=== PATIENT | female | born 2000 | race Caucasian/White ===

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

== ENCOUNTER 2019-01-03 17:39 | Emergency (ER) | payer MEDICAID ==
--- NOTE | 2019-01-03 18:11 | ED Physician Documentation ---
PD HPI HEAD INJURY - Stated complaint Stated Complaint: DE [place] ROSA/GLF - Chief complaint Chief Complaint: Neuro - History obtained from History obtained from: Patient - History of Present Illness Mechanism of head injury: Fell Where head injury occurred: Home Timing - onset: How many days ago (3) Pain level max: 10 Pain level now: 8 Location of injury: Other (global) Quality of pain: Pain, Aching, Dull Associated symptoms: LOC, AMS, Amnesia. No: Nausea / vomiting, Neck pain, Paresthesias, Seizures, Ear drainage Symptoms improve with: Rest Symptoms worsen with: Movement Contributing factors: No: Anticoagulated, Intoxicated Similar symptoms before: Has not had sx before Recently seen: Not recently seen - Additional information Additional information: states fell doing laundry on tuesday night and "hasn't felt right since" Review of Systems Unable to obtain: AMS, Confused Ten Systems: 10 systems reviewed and negative Constitutional: denies: Fever Nose: denies: Rhinorrhea / runny nose, Congestion Throat: denies: Sore throat Cardiac: denies: Chest pain / pressure Respiratory: denies: Cough GI: denies: Nausea, Vomiting, Diarrhea : denies: Now EGA Skin: denies: Rash Musculoskeletal: denies: Neck pain, Back pain Neurologic: reports: Confused. denies: Focal weakness, Numbness PD PAST MEDICAL HISTORY - Past Medical History Past Medical History: Yes Psych: Depression - Past Surgical History Past Surgical History: No - Present Medications Home Medications: Ambulatory Orders Medication Instructions Recorded Confirmed Albuterol Sulf [Ventolin Hfa 1 - 2 puffs INH Q4HR PRN 01/03/19 01/03/19 Inhaler] Beclomethasone 40 Mcg [Qvar 40] 0 puffs INH BID 01/03/19 01/03/19 Omeprazole 10 mg PO 01/03/19 01/03/19 Prazosin [Minipress] 1 mg PO 01/03/19 Sertraline [Zoloft] 100 mg PO 01/03/19 traZODone [Desyrel] 50 mg PO ONCE 01/03/19 01/03/19 - Allergies Allergies/Adverse Reactions: Allergies Allergy/AdvReac Type Severity Reaction Status Date / Time No Known Drug Allergies Allergy Verified 01/03/19 18:05 - Living Situation Living Situation: reports: With family Living Arrangement: reports: At home - Social History Does the pt smoke?: No Smoking Status: Never smoker Does the pt drink ETOH?: No Does the pt have substance abuse?: No - Family History Family history: reports: Non contributory - Immunizations Immunizations are current?: Yes - POLST Patient has POLST: No PD ED PE NORMAL - Vitals Vital signs reviewed: Yes - General General: Alert and oriented X 3, No acute distress - HEENT HEENT: Moist mucous membranes - Neck Neck: Supple, no meningeal sign - Cardiac Cardiac: RRR - Respiratory Respiratory: No respiratory distress, Clear bilaterally - Abdomen Abdomen: Soft, Non tender, Non distended - Back Back: No spinal TTP - Derm Derm: Warm and dry - Extremities Extremities: No edema - Neuro Neuro: Alert and oriented X 3 - Free text exam Free text exam: Patient is alert and oriented x3, however she often replies "I do not know" to questions that she should know the answer to such as do you smoke, she responds "I do not know". When pressed further she states not since she hit her head. When asked if she smoked before she hit her head, she states I do not know". Results - Vitals Vitals: Vital Signs - 24 hr 01/03/19 01/03/19 17:43 19:53 Temperature 36.3 C L Heart Rate 73 72 Respiratory 18 16 Rate Blood Pressure 143/82 H 118/71 O2 Saturation 100 100 Oxygen O2 Source Room air - Labs Labs: Laboratory Tests 01/03/19 01/03/19 01/03/19 18:12 18:12 18:12 WBC 7.6 RBC 4.65 Hgb 12.9 Hct 39.8 MCV 85.7 MCH 27.8 MCHC 32.4 RDW 13.9 Plt Count 340 MPV 6.8 L Neut # (Auto) 5.0 Lymph # (Auto) 1.7 [place] # (Auto) 0.7 Eos # (Auto) 0.1 Baso # (Auto) 0.0 Absolute Nucleated RBC 0.00 Nucleated RBC % 0.0 Sodium 138 Potassium 3.7 Chloride 102 Carbon Dioxide 24 Anion Gap 12.0 BUN 12 Creatinine 0.6 Estimated GFR (MDRD) 129 Glucose 92 Calcium 9.0 Total Bilirubin 0.3 AST 21 ALT 19 Alkaline Phosphatase 59 Total Protein 7.1 Albumin 4.1 Globulin 3.0 Albumin/Globulin Ratio 1.4 Lipase 37 TSH 2.42 Urine Color Urine Clarity Urine pH Ur Specific [place] Urine Protein Urine Glucose (UA) Urine Ketones Urine Occult Blood Urine Nitrite Urine Bilirubin Urine Urobilinogen Ur Leukocyte Esterase Ur Microscopic Review Urine Culture Comments Urine HCG, Qual Salicylates < 6.0 Urine Opiates Screen Ur Oxycodone Screen Urine Methadone Screen Ur Propoxyphene Screen Acetaminophen < 10 L Ur Barbiturates Screen Ur Tricyclics Screen Ur Phencyclidine Scrn Ur Amphetamine Screen U Methamphetamines Scrn U Benzodiazepines Scrn Urine Cocaine Screen U Cannabinoids Screen Ethyl Alcohol < 5.0 01/03/19 01/03/19 18:15 18:15 WBC RBC Hgb Hct MCV MCH MCHC RDW Plt Count MPV Neut # (Auto) Lymph # (Auto) [place] # (Auto) Eos # (Auto) Baso # (Auto) Absolute Nucleated RBC Nucleated RBC % Sodium Potassium Chloride Carbon Dioxide Anion Gap BUN Creatinine Estimated GFR (MDRD) Glucose Calcium Total Bilirubin AST ALT Alkaline Phosphatase Total Protein Albumin Globulin Albumin/Globulin Ratio Lipase TSH Urine Color YELLOW Urine Clarity CLEAR Urine pH 6.0 Ur Specific [place] 1.015 Urine Protein NEGATIVE Urine Glucose (UA) NEGATIVE Urine Ketones NEGATIVE Urine Occult Blood TRACE-INTA Urine Nitrite NEGATIVE Urine Bilirubin NEGATIVE Urine Urobilinogen 0.2 (NORMAL) Ur Leukocyte Esterase NEGATIVE Ur Microscopic Review NOT INDICATED Urine Culture Comments NOT INDICATED Urine HCG, Qual NEGATIVE Salicylates Urine Opiates Screen NEGATIVE Ur Oxycodone Screen NEGATIVE Urine Methadone Screen NEGATIVE Ur Propoxyphene Screen NEGATIVE Acetaminophen Ur Barbiturates Screen NEGATIVE Ur Tricyclics Screen NEGATIVE Ur Phencyclidine Scrn NEGATIVE Ur Amphetamine Screen NEGATIVE U Methamphetamines Scrn NEGATIVE U Benzodiazepines Scrn NEGATIVE Urine Cocaine Screen NEGATIVE U Cannabinoids Screen NEGATIVE Ethyl Alcohol - Rads (name of study) Head CT Radiology: Prelim report reviewed, EMP read contemporaneously, See rad report (no acute abnormality.) PD MEDICAL DECISION MAKING - ED course Complexity details: reviewed results, re-evaluated patient, considered differential, d/w patient ED course: 18-year-old female presents to the emergency department after closed head injury a few days ago. Negative head CT. Appears to be having postconcussive symptoms. No acute laboratory findings. Her headache improved with Motrin. We will follow-up with her doctor for further care. Patient counseled regarding signs and symptoms for which I believe and urgent re-evaluation would be necessary. Patient with good understanding of and agreement to plan and is comfortable going home at this time This document was made in part using voice recognition software. While efforts are made to proofread this document, sound alike and grammatical errors may occur. Departure - Departure Disposition: 01 Home, Self Care Clinical Impression: Concussion Qualifiers: Encounter type: initial encounter Loss of consciousness presence/duration: with LOC of unspecified duration Qualified Code(s): S06.0X9A - Concussion with loss of consciousness of unspecified duration, initial encounter Condition: Good Instructions: ED Concussion Follow-Up: Rosita Leavitt PA-C [Provider Admit Priv/Credential] - Within 1 week Comments: You can continue Motrin and Tylenol as needed for pain. Return if you worsen. Do not drive until you are released by your doctor. Discharge Date/Time: 01/03/19 20:00
[2019-01-03 18:17] LABS: BASOPHILS % (AUTO) 0.3 %; EOSINOPHILS # (AUTO) 0.1 10^3/uL (0.0-0.7); EOSINOPHILS % (AUTO) 1.4 %; HGB - HEMOGLOBIN 12.9 g/dL (12.0-16.0); LYMPHOCYTES # (AUTO) 1.7 10^3/uL (1.5-3.5); LYMPHOCYTES % (AUTO) 22.3 %; MEAN CORPUSCULAR HEMOGLOBIN 27.8 pg (27.0-31.0); MEAN CORPUSCULAR HGB CONC 32.4 g/dL (32.0-36.0); MEAN CORPUSCULAR VOLUME 85.7 fL (81.0-99.0); MEAN PLATELET VOLUME 6.8 fL (7.9-10.8); MONOCYTES # (AUTO) 0.7 10^3/uL (0.0-1.0); MONOCYTES % (AUTO) 9.6 %; NEUTROPHILS % (AUTO) 66.4 %; PLT - PLATELET COUNT 340 10^3/uL (130-450); RED BLOOD COUNT 4.65 10^6/uL (4.20-5.40); RED CELL DISTRIBUTION WIDTH 13.9 % (12.0-15.0); WHITE BLOOD COUNT 7.6 x10^3/uL (4.8-10.8)
[2019-01-03 18:23] LABS: MUDS CUTOFF CONCENTRATIONS CUTOFF CONC BELOW:
[2019-01-03 18:24] LABS: BILIRUBIN,URINE NEGATIVE (NEGATIVE); GLUCOSE, URINE (UA) NEGATIVE (NEGATIVE); KETONES,URINE (UA) NEGATIVE (NEGATIVE); LEUKOCYTE ESTERASE, URINE NEGATIVE (NEGATIVE); NITRITE,URINE NEGATIVE (NEGATIVE); OCCULT BLOOD,URINE TRACE-INTA (NEGATIVE); PROTEIN,URINE NEGATIVE (NEGATIVE); UROBILINOGEN,URINE 0.2 (NORMAL) E.U./dL (NORMAL)
[2019-01-03 18:28] LABS: CLARITY,URINE CLEAR (CLEAR)
[2019-01-03 18:29] LABS: HCG UR QUAL NEGATIVE
[2019-01-03 18:36] LABS: AMPHETAMINE SCREEN,URINE NEGATIVE (NEGATIVE); BENZODIAZEPINES SCREEN, URINE NEGATIVE (NEGATIVE); COCAINE SCREEN URINE NEGATIVE (NEGATIVE); METHADONE SCREEN, URINE NEGATIVE (NEGATIVE); METHAMPHETAMINES SCREEN, URINE NEGATIVE (NEGATIVE); OPIATE SCREEN, URINE NEGATIVE (NEGATIVE); OXYCODONE SCREEN, URINE NEGATIVE (NEGATIVE); PROPOXYPHENE SCREEN, URINE NEGATIVE (NEGATIVE); TRICYCLIC ANTIDEPRESSANT,URINE NEGATIVE (NEGATIVE)
[2019-01-03 18:55] LABS: ACETAMINOPHEN < 10 ug/mL (10-30); ALBUMIN 4.1 g/dL (3.2-5.5); ALBUMIN/GLOBULIN RATIO 1.4 (1.0-2.2); ALKALINE PHOSPHATASE 59 IU/L (42-121); ALT ALANINE AMINOTRANSFERASE 19 IU/L (10-60); AST ASPARTATE AMINOTRANSFERASE 21 IU/L (10-42); BILIRUBIN,TOTAL 0.3 mg/dL (0.2-1.0); BUN - BLOOD UREA NITROGEN 12 mg/dL (6-20); CARBON DIOXIDE - CO2 24 mmol/L (21-32); CHLORIDE 102 mmol/L (101-111); CREATININE 0.6 mg/dL (0.4-1.0); GFR - MDRD 129 (>89); GLUCOSE 92 mg/dL (70-100); LIPASE 37 U/L (22-51); SALICYLATE < 6.0 mg/dL; SODIUM 138 mmol/L (135-145); TOTAL PROTEIN 7.1 g/dL (6.7-8.2)
--- NOTE | 2019-01-03 19:37 | CT Report ---
Reason: head injury, ALOC Procedure Date: 01/03/2019 Accession Number: [id number] / [id number] Procedure: CT - HEAD WO CPT Code: FULL RESULT: EXAM: CT HEAD EXAM DATE: 01/03/2019 06:25 PM. CLINICAL HISTORY: Confusion COMPARISON: HEAD W/O 06/28/2014 3:06 PM. TECHNIQUE: Multiaxial CT images were obtained from the foramen magnum to the vertex. Reformats: Sagittal and coronal. IV contrast: None. In accordance with CT protocol optimization, one or more of the following dose reduction techniques were utilized for this exam: automated exposure control, adjustment of mA and/or KV based on patient size, or use of iterative reconstructive technique. FINDINGS: Parenchyma: No intraparenchymal hemorrhage. No evidence of mass, midline shift, or CT findings of infarction. Haro-white differentiation is distinct. Extraaxial Spaces: Normal for age. No subdural or epidural collections identified. Ventricles: Normal in size and position. Sinuses and Orbits: Imaged paranasal sinuses, orbits, and mastoids show no significant abnormality. Bones: No evidence of fracture or calvarial defect. Other: None. IMPRESSION: No acute intracranial CT abnormality. RADIA
[2019-01-03] MEDS ORDERED: IBUPROFEN 800 MG TABLET PO STA (19:51)
[2019-01-03 19:54] VITALS: BP 118/71
== END 2019-01-03 20:00 | disposition home or self-care (01) ==
LOC: ED 17:39
DX: S06.0X9A Concussion with loss of consciousness of unspecified duration, initial encounter (principal); W19.XXXA Unspecified fall, initial encounter; Y93.E2 Activity, laundry; Y92.008 Other place in unspecified non-institutional (private) residence as the place of occurrence of the external cause
CPT/HCPCS: 36415; 70450; 80053; 80306; 80307; 80320; 80329; 81003; 81025; 83690; 84443; 85025; 99283; A9270; 81001; 87086

== ENCOUNTER 2019-02-11 19:00 | Emergency (ER) | payer MEDICAID ==
[2019-02-11 19:09] VITALS: BP 130/76
[2019-02-11] MEDS ORDERED: IBUPROFEN 800 MG TABLET PO STA (19:30)
--- NOTE | 2019-02-11 19:33 | ED Physician Documentation ---
PD HPI UPPER EXT INJURY - Stated complaint Stated Complaint: RT WRIST INJ - Chief complaint Chief Complaint: Trauma Ext - History obtained from History obtained from: Patient - History of Present Illness Location: Right (Her right wrist was caught between a box in her car when she was lifting it at home just prior to arrival.) Review of Systems Constitutional: reports: Reviewed and negative Throat: reports: Reviewed and negative Cardiac: reports: Reviewed and negative Respiratory: reports: Reviewed and negative PD PAST MEDICAL HISTORY - Past Medical History Psych: Depression - Past Surgical History Past Surgical History: No - Present Medications Home Medications: Ambulatory Orders Medication Instructions Recorded Confirmed Albuterol Sulf [Ventolin Hfa 1 - 2 puffs INH Q4HR PRN 01/03/19 01/03/19 Inhaler] Beclomethasone 40 Mcg [Qvar 40] 0 puffs INH BID 01/03/19 01/03/19 Omeprazole 10 mg PO 01/03/19 01/03/19 Prazosin [Minipress] 1 mg PO 01/03/19 Sertraline [Zoloft] 100 mg PO 01/03/19 traZODone [Desyrel] 50 mg PO ONCE 01/03/19 01/03/19 Ibuprofen [Motrin] 800 mg PO Q8H PRN #30 tablet 02/11/19 - Allergies Allergies/Adverse Reactions: Allergies Allergy/AdvReac Type Severity Reaction Status Date / Time No Known Drug Allergies Allergy Verified 02/11/19 19:08 - Social History Does the pt smoke?: No Smoking Status: Never smoker Does the pt drink ETOH?: No Does the pt have substance abuse?: No - Immunizations Immunizations are current?: Yes - POLST Patient has POLST: No PD ED PE NORMAL - Vitals Vital signs reviewed: Yes - General General: Alert and oriented X 3, No acute distress - Extremities Extremities: Other (Mild tenderness over the distal dorsal wrist. She refuses to range it. No focal snuffbox tenderness. Normal neurovascular function in the hand.) - Neuro Neuro: Alert and oriented X 3, Normal speech Results - Vitals Vitals: Vital Signs - 24 hr 02/11/19 19:06 Temperature 36.2 C L Heart Rate 104 H Respiratory 16 Rate Blood Pressure 130/76 O2 Saturation 99 Oxygen O2 Source Room air Departure - Departure Disposition: 01 Home, Self Care Clinical Impression: Crush injury, wrist Qualifiers: Encounter type: initial encounter Laterality: right Qualified Code(s): S67.31XA - Crushing injury of right wrist, initial encounter Condition: Good Record reviewed to determine appropriate education?: Yes Instructions: ED Sprain Wrist Prescriptions: Ibuprofen [Motrin] 800 mg PO Q8H PRN #30 tablet PRN Reason: PAIN &/OR FEVER Comments: Recheck with your physician in a week if not better, return for new or worsening symptoms. You can wear the splint as needed for comfort.
--- NOTE | 2019-02-11 19:38 | XRAY Report ---
Reason: injury to R wrist, dropped a heavy box Procedure Date: 02/11/2019 Accession Number: [id number] / [id number] Procedure: XR - Wrist 4 View RT CPT Code: FULL RESULT: EXAM: RIGHT WRIST RADIOGRAPHY EXAM DATE: 02/11/2019 07:24 PM. CLINICAL HISTORY: Wrist pain post injury. COMPARISON: None. TECHNIQUE: 4 views. FINDINGS: Bones: Normal. No fractures or bone lesions. Joints: Normal. No subluxations. Soft Tissues: Normal. No soft tissue swelling. IMPRESSION: Normal wrist radiography. RADIA
== END 2019-02-11 19:51 | disposition home or self-care (01) ==
LOC: ED 19:00
DX: S67.31XA Crushing injury of right wrist, initial encounter (principal); W20.8XXA Other cause of strike by thrown, projected or falling object, initial encounter; Y93.89 Activity, other specified; Y92.009 Unspecified place in unspecified non-institutional (private) residence as the place of occurrence of the external cause
CPT/HCPCS: 73110; 99283; A9270

== ENCOUNTER 2019-05-19 07:22 | Outpatient (CLI) | payer OTHER, BC, MEDICAID | END 2019-05-19 07:23 | disposition critical access hospital (66) | LOC: EMS 07:22 | PROVIDERS: ATTEND Surgery | DX: R10.32 Left lower quadrant pain (principal); M25.512 Pain in left shoulder; S01.21XA Laceration without foreign body of nose, initial encounter; V48.5XXA Car driver injured in noncollision transport accident in traffic accident, initial encounter; Y92.413 State road as the place of occurrence of the external cause | CPT/HCPCS: A0425; A0427 ==

== ENCOUNTER → 2019-05-23 | Outpatient (CLI) | payer BC, MEDICAID ==
--- NOTE | 2019-05-23 16:19 | XRAY Report ---
Reason: LOW BACK PAIN Procedure Date: 05/23/2019 Accession Number: [id number] / [id number] Procedure: WCP - Lumbar Spine 2 View CPT Code: FULL RESULT: EXAM: LUMBOSACRAL SPINE RADIOGRAPHY EXAM DATE: 05/23/2019 03:38 PM. CLINICAL HISTORY: LOW BACK PAIN. COMPARISONS: None. TECHNIQUE: 3 views. FINDINGS: Alignment: Normal. No spondylolisthesis or scoliosis. Bones: Five [id number]-[id number] lumbar vertebral bodies are present. No fractures or bone lesions. Disks: Normal. Disk heights are maintained. Facets: No degenerative changes. Sacroiliac Joints: Unremarkable. Soft Tissues: Large amount of generalized retained stool. Intrauterine device noted in right pelvis. IMPRESSION: 1. Large amount of generalized retained stool. 2. Otherwise negative examination. Normal lumbar spine and pelvis. RADIA
== END ==
LOC: DI.WCP 08:00 → EDSTATUS 10:24
PROVIDERS: ATTEND Physician Assistant Medical
DX: M54.5 Low back pain (principal)
CPT/HCPCS: 72100

== ENCOUNTER 2019-11-01 17:23 | Emergency (ER) | payer OTHER, MEDICAID ==
[2019-11-01 18:35] LABS: BASOPHILS % (AUTO) 0.4 %; EOSINOPHILS # (AUTO) 0.1 10^3/uL (0.0-0.7); EOSINOPHILS % (AUTO) 1.7 %; HGB - HEMOGLOBIN 13.7 g/dL (12.0-16.0); LYMPHOCYTES # (AUTO) 1.5 10^3/uL (1.5-3.5); LYMPHOCYTES % (AUTO) 28.8 %; MEAN CORPUSCULAR HGB CONC 33.4 g/dL (32.0-36.0); MEAN CORPUSCULAR VOLUME 89.7 fL (81.0-99.0); MEAN PLATELET VOLUME 9.1 fL (7.9-10.8); MONOCYTES # (AUTO) 0.5 10^3/uL (0.0-1.0); MONOCYTES % (AUTO) 9.2 %; NEUTROPHILS # (AUTO) 3.1 10^3/uL (1.5-6.6); NEUTROPHILS % (AUTO) 59.5 %; PLT - PLATELET COUNT 290 10^3/uL (130-450); RED BLOOD COUNT 4.57 10^6/uL (4.20-5.40); RED CELL DISTRIBUTION WIDTH 12.1 % (12.0-15.0); WHITE BLOOD COUNT 5.2 x10^3/uL (4.8-10.8)
[2019-11-01 18:56] LABS: ALBUMIN 4.5 g/dL (3.2-5.5); ALBUMIN/GLOBULIN RATIO 1.6 (1.0-2.2); BILIRUBIN,TOTAL 0.4 mg/dL (0.2-1.0); CALCIUM 9.1 mg/dL (8.5-10.3); CREATININE 0.7 mg/dL (0.4-1.0); TOTAL PROTEIN 7.3 g/dL (6.7-8.2)
[2019-11-01 18:59] LABS: BILIRUBIN,URINE NEGATIVE (NEGATIVE); GLUCOSE, URINE (UA) NEGATIVE (NEGATIVE); KETONES,URINE (UA) NEGATIVE (NEGATIVE); LEUKOCYTE ESTERASE, URINE NEGATIVE (NEGATIVE); NITRITE,URINE POSITIVE (NEGATIVE); OCCULT BLOOD,URINE NEGATIVE (NEGATIVE); PH,URINE 7.5 PH (5.0-7.5); PROTEIN,URINE NEGATIVE (NEGATIVE); UROBILINOGEN,URINE 0.2 (NORMAL) E.U./dL (NORMAL)
[2019-11-01 19:02] LABS: CLARITY,URINE SL. CLOUDY (CLEAR); HCG UR QUAL NEGATIVE
--- NOTE | 2019-11-01 19:02 | ED Physician Documentation ---
History of Present Illness - Stated complaint Stated Complaint: GLF AT WORK - Chief complaint Chief Complaint: General - History obtained from History obtained from: Patient (16-year-old patient arrives today she is a employee of [employer] in [place]. She was at work last night staring at the conveyor belt she says when she felt slightly dizzy then the next thing she remembers was being walked outside by an employee to get some fresh air. Since then she has had nausea. She was advised that if she awoke today with a headache to be seen in the emergency room, she woke up this morning she has had a headache all day, with some nausea without vomiting. She has no change in vision. 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, vascular ring, "fetus heart".) Review of Systems Constitutional: reports: Reviewed and negative Eyes: reports: Reviewed and negative Ears: reports: Reviewed and negative Nose: reports: Reviewed and negative Cardiac: reports: Reviewed and negative Respiratory: reports: Reviewed and negative GI: reports: Nausea, Vomiting Skin: reports: Reviewed and negative Neurologic: reports: Syncope, Headache, LOC PD PAST MEDICAL HISTORY - Past Medical History Past Medical History: Yes Cardiovascular: Other (Double aortic arch, vascular ring.) Psych: Depression - Past Surgical History Past Surgical History: No - Present Medications Home Medications: Ambulatory Orders Medication Instructions Recorded Confirmed Albuterol Sulf [Ventolin Hfa 1 - 2 puffs INH Q4HR PRN 01/03/19 01/03/19 Inhaler] Beclomethasone 40 Mcg [Qvar 40] 0 puffs INH BID 01/03/19 01/03/19 Omeprazole 10 mg PO 01/03/19 01/03/19 Prazosin [Minipress] 1 mg PO 01/03/19 Sertraline [Zoloft] 100 mg PO 01/03/19 traZODone [Desyrel] 50 mg PO ONCE 01/03/19 01/03/19 Ibuprofen [Motrin] 800 mg PO Q8H PRN #30 tablet 02/11/19 Cyclobenzaprine [Flexeril] 10 mg PO TID PRN #20 tablet 05/19/19 Hydrocodone/Acetaminophen 1 - 2 each PO Q6H PRN #14 tablet 05/19/19 [Hydrocodon-Acetaminophen 5-325] Nitrofurantoin [Macrobid] 100 mg PO DAILY #10 capsule 11/01/19 - Allergies Allergies/Adverse Reactions: Allergies Allergy/AdvReac Type Severity Reaction Status Date / Time No Known Drug Allergies Allergy Verified 05/19/19 07:38 - Social History Does the pt smoke?: No Smoking Status: Never smoker Does the pt drink ETOH?: No Does the pt have substance abuse?: No - Immunizations Immunizations are current?: Yes - POLST Patient has POLST: No PD ED PE NORMAL - General General: Alert and oriented X 3, No acute distress, Well developed/nourished - HEENT HEENT: Atraumatic, PERRL, EOMI, Ears normal, Moist mucous membranes, Pharynx benign - Neck Neck: No adenopathy - Cardiac Cardiac: RRR, No murmur - Respiratory Respiratory: No respiratory distress, Clear bilaterally - Abdomen Abdomen: Normal bowel sounds, Soft, Non tender - Neuro Neuro: Alert and oriented X 3, can capper 2-12 intact, No motor deficit, No sensory deficit, Normal speech Eye Opening: Spontaneous Motor: Obeys Commands Verbal: Oriented GCS Score: 15 PD ED PE EXPANDED - HEENT HEENT: Head injury (Slight tenderness to the posterior skull. Without ecchymosis or hematoma noted) Results - Vitals Vitals: Vital Signs - 24 hr 11/01/19 11/01/19 17:30 20:41 Temperature 36.6 C Heart Rate 82 80 Respiratory 16 16 Rate Blood Pressure 106/65 110/70 O2 Saturation 97 99 Oxygen O2 Source Room air - EKG (time done) 1817 Rhythm: NSR [place]: Normal Intervals: Normal [place] QRS: Normal Ischemia: Normal ST segments - Labs Labs: Laboratory Tests 11/01/19 11/01/19 11/01/19 18:27 18:27 18:45 WBC 5.2 RBC 4.57 Hgb 13.7 Hct 41.0 MCV 89.7 MCH 30.0 MCHC 33.4 RDW 12.1 Plt Count 290 MPV 9.1 Neut # (Auto) 3.1 Lymph # (Auto) 1.5 [place] # (Auto) 0.5 Eos # (Auto) 0.1 Baso # (Auto) 0.0 Absolute Nucleated RBC 0.00 Nucleated RBC % 0.0 Sodium 137 Potassium 3.7 Chloride 104 Carbon Dioxide 28 Anion Gap 5.0 L BUN 10 Creatinine 0.7 Estimated GFR (MDRD) 107 Glucose 74 Calcium 9.1 Total Bilirubin 0.4 AST 17 ALT 16 Alkaline Phosphatase 62 Total Protein 7.3 Albumin 4.5 Globulin 2.8 Albumin/Globulin Ratio 1.6 Lipase 34 Urine Color YELLOW Urine Clarity SL. CLOUDY Urine pH 7.5 Ur Specific [place] 1.020 Urine Protein NEGATIVE Urine Glucose (UA) NEGATIVE Urine Ketones NEGATIVE Urine Occult Blood NEGATIVE Urine Nitrite POSITIVE H Urine Bilirubin NEGATIVE Urine Urobilinogen 0.2 (NORMAL) Ur Leukocyte Esterase NEGATIVE Urine RBC 0-5 Urine WBC 0-3 Ur Squamous Epith Cells FEW Squamous Urine Bacteria Many H Ur Microscopic Review INDICATED Urine Culture Comments INDICATED Urine HCG, Qual NEGATIVE - Rads (name of study) 2014 Radiology: Final report received (Negative head CT) PD MEDICAL DECISION MAKING - ED course Complexity details: reviewed results, re-evaluated patient, d/w patient Departure - Departure Disposition: 01 Home, Self Care Clinical Impression: Syncope Qualifiers: Syncope type: unspecified Qualified Code(s): R55 - Syncope and collapse Concussion Qualifiers: Encounter type: initial encounter Loss of consciousness presence/duration: without LOC Qualified Code(s): S06.0X0A - Concussion without loss of consciousness, initial encounter Condition: Good Instructions: ED Concussion, ED UTI Cystitis Female Prescriptions: Nitrofurantoin [Macrobid] 100 mg PO DAILY #10 capsule Comments: Your head CT was normal today. Your urine test did show sgins of infection. I have prescribed you medication to take for this. Drink plenty of clear fluids. you can take tylenol or IBP for pain control. follow up with your PCP if your s ymptoms fail to improve in 3-5 days. Discharge Date/Time: 11/01/19 20:42
[2019-11-01 19:24] LABS: BACTERIA,URINE Many /HPF (None Seen); RBC,URINE 0-5 /HPF (0-5); SQUAMOUS EPITHELIAL CELL,UR FEW Squamous (<= Few)
--- NOTE | 2019-11-01 20:13 | CT Report ---
Reason: syncope, hit head; nausea, headache. Procedure Date: 11/01/2019 Accession Number: [id number] / [id number] Procedure: CT - HEAD WO CPT Code: Final Report FULL RESULT: EXAM: CT HEAD EXAM DATE: 11/01/2019 07:25 PM. CLINICAL HISTORY: Syncope, hit head; nausea, headache. COMPARISON: CERVICAL SPINE W/O 05/19/2019 7:57 AM. TECHNIQUE: Multiaxial CT images were obtained from the foramen magnum to the vertex. Reformats: Sagittal and coronal. IV contrast: None. In accordance with CT protocol optimization, one or more of the following dose reduction techniques were utilized for this exam: automated exposure control, adjustment of mA and/or KV based on patient size, or use of iterative reconstructive technique. FINDINGS: Parenchyma: No intraparenchymal hemorrhage. No evidence of mass, midline shift, or CT findings of infarction. Haro-white differentiation is distinct. Extraaxial Spaces: Normal for age. No subdural or epidural collections identified. Ventricles: Normal in size and position. Sinuses and Orbits: Imaged paranasal sinuses, orbits, and mastoids show no significant abnormality. Bones: No evidence of fracture or calvarial defect. Other: None. IMPRESSION: Negative nonenhanced head CT. RADIA
[2019-11-01 20:42] VITALS: BP 110/70
== END 2019-11-01 20:42 | disposition home or self-care (01) ==
LOC: ED 17:23
DX: R55 Syncope and collapse (principal); S06.0X0A Concussion without loss of consciousness, initial encounter; W18.39XA Other fall on same level, initial encounter; Y93.89 Activity, other specified; Y92.63 Factory as the place of occurrence of the external cause; Y99.0 Civilian activity done for income or pay; N39.0 Urinary tract infection, site not specified; Q25.45 Double aortic arch
CPT/HCPCS: 36415; 70450; 80053; 81001; 81003; 81025; 83690; 85025; 87086; 87181; 93005; 99284

== ENCOUNTER 2021-05-09 16:56 | Emergency (ER) | payer MEDICAID ==
[2021-05-09 17:43] VITALS: BP 122/99
--- NOTE | 2021-05-09 17:46 | ED Physician Documentation ---
PD HPI HEENT - Stated complaint Stated Complaint: SOA,CHILLS,CONGESTION - Chief complaint Chief Complaint: Resp - History obtained from History obtained from: Patient - Additional information Additional information: Exposed to Covid at her son's school. She is unimmunized. She has been sick for 2 days with body aches, chills, congestion and sore throat. No other sick contacts. Review of Systems Constitutional: reports: Fever, Chills, Myalgias, Fatigue Nose: reports: Rhinorrhea / runny nose Throat: reports: Sore throat Respiratory: reports: Cough GI: denies: Vomiting, Diarrhea PD PAST MEDICAL HISTORY - Past Medical History Cardiovascular: Other (Double aortic arch, vascular ring.) Psych: Depression - Past Surgical History Past Surgical History: No - Present Medications Home Medications: Ambulatory Orders Medication Instructions Recorded Confirmed Benzonatate [Tessalon] 200 mg PO QID PRN #20 cap 05/09/21 Ibuprofen [Motrin] 800 mg PO Q8H PRN #30 tablet 05/09/21 - Allergies Allergies/Adverse Reactions: Allergies Allergy/AdvReac Type Severity Reaction Status Date / Time No Known Drug Allergies Allergy Verified 05/09/21 17:38 - Social History Does the pt smoke?: No Smoking Status: Never smoker Does the pt drink ETOH?: No Does the pt have substance abuse?: No - Immunizations Immunizations are current?: Yes - POLST Patient has POLST: No PD ED PE NORMAL - Vitals Vital signs reviewed: Yes - General General: Alert and oriented X 3, No acute distress - HEENT HEENT: Ears normal, Pharynx benign - Neck Neck: Supple, no meningeal sign, No bony TTP - Cardiac Cardiac: RRR, No murmur - Respiratory Respiratory: No respiratory distress, Clear bilaterally - Abdomen Abdomen: Non tender - Back Back: No CVA TTP, No spinal TTP - Derm Derm: Normal color, Warm and dry - Extremities Extremities: No edema, No calf tenderness / cord - Neuro Neuro: Alert and oriented X 3, Normal speech Results - Vitals Vitals: Vital Signs - 24 hr 05/09/21 17:35 Temperature 36.7 C Heart Rate 100 Respiratory 18 Rate Blood Pressure 122/99 H O2 Saturation 99 Oxygen O2 Source Room air PD MEDICAL DECISION MAKING - ED course ED course: 21-year-old woman with typical viral syndrome, clearly a concern for Covid in this day and age. Mab therapy considered, but there is a shortage, and thankfully she is young and relatively healthy albeit high side BMI and asthma. Departure - Departure Disposition: 01 Home, Self Care Clinical Impression: Viral syndrome Condition: Good Record reviewed to determine appropriate education?: Yes Instructions: ED Viral Syndrome Prescriptions: Ibuprofen [Motrin] 800 mg PO Q8H PRN #30 tablet PRN Reason: PAIN &/OR FEVER Benzonatate [Tessalon] 200 mg PO QID PRN #20 cap PRN Reason: Cough Comments: Prescription sent electronically to [facility] in [place]. You have a Covid test pending. You need to self quarantine until the result is done and negative. Do not leave your house. Do not get near anybody. The results should be done in 48 to 72 hours. We will call with a positive result, the fastest way to get a negative result for confirmation though is to go to the hospital website at [email or web address], click on the my [employer] tab and sign up for the patient portal. If any friends or family get sick and would like to have a Covid test done, but do not have signs or symptoms that would necessitate being hospitalized, we encourage testing through our coronavirus swabbing station, call [phone] to schedule an appointment.
== END 2021-05-09 18:16 | disposition home or self-care (01) ==
LOC: ED 16:56
DX: U07.1 COVID-19 (principal)
CPT/HCPCS: 99283

== ENCOUNTER 2021-11-16 01:14 | Emergency (ER) | payer MEDICAID ==
--- NOTE | 2021-11-16 01:24 | ED Physician Documentation ---
PD HPI URI - Stated complaint Stated Complaint: SORE THROAT - Chief complaint Chief Complaint: Heent - Additional information Additional information: Patient is 21-year-old female presenting with sore throat, upper airway congestion, laryngitis. Symptoms ongoing x4 days. No known sick contacts. Past medical significant for asthma. Does report she has been using her inhaler more frequently at home. Denies any Covid vaccines. Denies any known sick contacts. Denies fever, chills, chest pain, abdominal pain, nausea, vomiting, diarrhea, constipation. Review of Systems Constitutional: denies: Fever Eyes: denies: Loss of vision Ears: denies: Loss of hearing Nose: reports: Rhinorrhea / runny nose, Congestion, Sinus pressure / pain Throat: reports: Sore throat. denies: Dental pain / toothache, Oral lesions / sores Cardiac: denies: Chest pain / pressure Respiratory: reports: Wheezing GI: denies: Abdominal Pain, Nausea, Vomiting : denies: Dysuria PD PAST MEDICAL HISTORY - Past Medical History Cardiovascular: Other (Double aortic arch, vascular ring.) Respiratory: Asthma Psych: Depression - Past Surgical History Past Surgical History: No - Present Medications Home Medications: Ambulatory Orders Medication Instructions Recorded Confirmed Benzonatate [Tessalon] 200 mg PO ONCE #30 cap 11/16/21 Galcanezumab-Gnlm [Emgality Pen] 11/16/21 guaiFENesin [Mucinex] 600 mg PO DAILY #15 tablet 11/16/21 - Allergies Allergies/Adverse Reactions: Allergies Allergy/AdvReac Type Severity Reaction Status Date / Time No Known Drug Allergies Allergy Verified 11/16/21 01:26 - Social History Does the pt smoke?: No Smoking Status: Never smoker Does the pt drink ETOH?: No Does the pt have substance abuse?: No - Immunizations Immunizations are current?: Yes - POLST Patient has POLST: No PD ED PE NORMAL - General General: Alert and oriented X 3 - HEENT HEENT: Atraumatic, PERRL, Pharynx benign, Dentition benign - Neck Neck: Supple, no meningeal sign - Cardiac Cardiac: RRR - Respiratory Respiratory: No respiratory distress, Clear bilaterally - Abdomen Abdomen: Normal bowel sounds - Female Female : Deferred - Rectal Rectal: Deferred Results - Vitals Vitals: Vital Signs - 24 hr 11/16/21 01:15 Temperature 36.5 C Heart Rate 101 H Respiratory 16 Rate Blood Pressure 132/79 H O2 Saturation 98 Oxygen O2 Source Room air - Labs Labs: Laboratory Tests 11/16/21 11/16/21 01:30 01:30 Nasal Adenovirus (PCR) NOT DETECTED Nasal B. parapertussis DNA (PCR) NOT DETECTED Nasal Coronavir 229E PCR NOT DETECTED Nasal Coronavir HKU1 PCR NOT DETECTED Nasal Coronavir NL63 PCR NOT DETECTED Nasal Coronavir OC43 PCR NOT DETECTED Nasal Enterovir/Rhinovir PCR NOT DETECTED Nasal Influenza B PCR NOT DETECTED Nasal Influenza A PCR NOT DETECTED Nasal Parainfluen 1 PCR NOT DETECTED Nasal Parainfluen 2 PCR NOT DETECTED Nasal Parainfluen 3 PCR NOT DETECTED Nasal Parainfluen 4 PCR NOT DETECTED Nasal RSV (PCR) NOT DETECTED Nasal B.pertussis DNA PCR NOT DETECTED Nasal C.pneumoniae (PCR) NOT DETECTED Lucho Human Metapneumo PCR NOT DETECTED Nasal M.pneumoniae (PCR) NOT DETECTED Nasal SARS-CoV-2 (PCR) NOT DETECTED Group A Strep Rapid Negative PD MEDICAL DECISION MAKING - ED course Complexity details: reviewed results, d/w patient ED course: Patient is 21-year-old female presenting to the emergency department with sore throat, sinus pressure, laryngitis ongoing x4 days. Afebrile, hemodynamically stable on arrival to the emergency department. HEENT exam benign. Strep pharyngitis swab negative. Viral PCR negative. Patient given dose Decadron for pharyngitis. Will discharge with short course Tessalon, Mucinex for use as needed. Encouraged follow-up with primary care as needed. Otherwise clear return precautions and follow-up instructions given prior to discharge. Departure - Departure Disposition: 01 Home, Self Care Clinical Impression: Viral URI Instructions: ED Viral Syndrome Prescriptions: guaiFENesin [Mucinex] 600 mg PO DAILY #15 tablet Benzonatate [Tessalon] 200 mg PO ONCE #30 cap Comments: Thank you for allowing us to care for you this evening at [facility]. Both your strep pharyngitis swab as well as your respiratory viral swab and Covid screening test were negative in the emergency department. The dose of Decadron you are given in the emergency department will help with your sore throat over the course of the next several days. I also sent some medications to your preferred pharmacy to help with cough and congestion. Please drink plenty fluids and get plenty of rest. Please follow-up with your primary care doctor soon as you are able. If it anytime you develop any new or worsening s ymptoms please not hesitate to return to the emergency department.
[2021-11-16 01:25] VITALS: BP 132/79
[2021-11-16] MEDS: DEXAMETHASONE 10 MG/ML VIAL PO STA (01:39)
[2021-11-16] MEDS: CHERRY SYRUP 10 ML UDC PO ONE (01:39)
[2021-11-16 01:48] LABS: RAPID STREP SCREEN Negative (Negative)
[2021-11-16 02:26] LABS: B. PARAPERTUSSIS- RESP PCR PAN NOT DETECTED; B. PERTUSSIS- RESP PCR PANEL NOT DETECTED; C. PNEUMONIAE- RESP PCR PANEL NOT DETECTED; CORONAVIRUS 229E-RESP PCR NOT DETECTED; CORONAVIRUS HKU1-RESP PCR NOT DETECTED; CORONAVIRUS NL63-RESP PCR NOT DETECTED; CORONAVIRUS OC43-RESP PCR NOT DETECTED; HUMAN METAPNEUMOVIRUS NOT DETECTED; INFLUENZA A- RESP PCR PANEL NOT DETECTED; INFLUENZA B - RESP PCR PANEL NOT DETECTED; M. PNEUMONIAE- RESP PCR PANEL NOT DETECTED; PARAINFLUENZA VIRUS 1 NOT DETECTED; PARAINFLUENZA VIRUS 2 NOT DETECTED; PARAINFLUENZA VIRUS 3 NOT DETECTED; PARAINFLUENZA VIRUS 4 NOT DETECTED; RHINOVIRUS/ENTEROVIRUS NOT DETECTED; RSV- RESP PCR PANEL NOT DETECTED; SARS-CoV-2 -RESP PCR PANEL NOT DETECTED
== END 2021-11-16 02:53 | disposition home or self-care (01) ==
LOC: ED 01:14
DX: J06.9 Acute upper respiratory infection, unspecified (principal); Z20.822 Contact with and (suspected) exposure to COVID-19
CPT/HCPCS: 0202U; 87070; 87430; 99282; 99283; A9270

== ENCOUNTER 2022-05-26 00:58 | Emergency (ER) | payer MEDICAID ==
[2022-05-26 01:11] VITALS: BP 133/81
--- NOTE | 2022-05-26 02:02 | XRAY Report ---
PROCEDURE: Shoulder 2 View LT INDICATIONS: shoulder pain, popping TECHNIQUE: 2 views of the shoulder were acquired. COMPARISON: None. FINDINGS: Bones: No fractures or dislocations. No suspicious bony lesions. Visualized ribs appear intact. Soft tissues: No suspicious soft tissue calcifications. IMPRESSION: 1. No fracture or dislocation. Reviewed by: Tahir Hill MD on 05/26/2022 2:01 AM PDT Approved by: Tahir Hill MD on 05/26/2022 2:01 AM PDT Station ID: [id number]
[2022-05-26] MEDS ORDERED: KETOROLAC 30 MG/ML VIAL IM STA (02:10)
--- NOTE | 2022-05-26 02:13 | ED Physician Documentation ---
History of Present Illness - Stated complaint Stated Complaint: LEFT SHOULDER PX - Chief complaint Chief Complaint: Ext Problem - History obtained from History obtained from: Patient - Additonal information Additional information: 22-year-old woman Presents with left shoulder and neck stiffness since waking Tuesday morning. Constant, waxing and waning in severity, radiating from left shoulder up to base of the neck quality described as "tightness".He denies numbness, weakness, trauma. Review of Systems Musculoskeletal: reports: Neck pain, Extremity pain PD PAST MEDICAL HISTORY - Past Medical History Cardiovascular: Other (Double aortic arch, vascular ring.) Respiratory: Asthma Neuro: Migraines Psych: Depression - Past Surgical History Past Surgical History: No HEENT: Other - Present Medications Home Medications: Ambulatory Orders Medication Instructions Recorded Confirmed Galcanezumab-Gnlm [Emgality Pen] 1 ml SUBQ ONCE 11/16/21 05/26/22 Escitalopram [Lexapro] 10 mg PO DAILY 05/26/22 05/26/22 Rizatriptan Benzoate [Rizatriptan] 10 mg PO PRN PRN 05/26/22 05/26/22 Spironolactone [Aldactone] 25 mg PO DAILY 05/26/22 05/26/22 metFORMIN [Glucophage] 500 mg PO DAILY 05/26/22 05/26/22 - Allergies Allergies/Adverse Reactions: Allergies Allergy/AdvReac Type Severity Reaction Status Date / Time No Known Drug Allergies Allergy Verified 05/26/22 01:11 - Social History Does the pt smoke?: No Smoking Status: Never smoker Does the pt drink ETOH?: No Does the pt have substance abuse?: No - Immunizations Immunizations are current?: Yes - POLST Patient has POLST: No PD ED PE NORMAL - Vitals Vital signs reviewed: Yes - General General: Alert and oriented X 3, No acute distress, Well developed/nourished - HEENT HEENT: Atraumatic, PERRL, EOMI - Neck Neck: Other (BL neck stiffness and discomfort with palpation) - Derm Derm: Normal color, Warm and dry - Extremities Extremities: Other (FROM L shoulder. discomfort with rom. 2+ LUE radial pulse. normal sensation and strength) Results - Vitals Vitals: Vital Signs - 24 hr 05/26/22 01:00 Temperature 36.3 C L Heart Rate 83 Respiratory 14 Rate Blood Pressure 133/81 H O2 Saturation 100 Oxygen O2 Source Room air PD MEDICAL DECISION MAKING - ED course ED course: 22-year-old woman Presents with left shoulder and neck strain. Symptomatic care discussed. Toradol provided. Plan to follow-up with GERARDO Leavitt on June 08 appointment. Return precautions given. Departure - Departure Disposition: Home, Self Care Clinical Impression: Left shoulder strain Condition: Good Instructions: ED Sprain Strain Neck Comments: You are seen in the emergency department for left shoulder and neck stiffness and strain. Please follow-up with GERARDO Leavitt and return to the emergency department if you have any new or worsening symptoms or other concerns. Take ibuprofen 600 mg every 6 hours as needed for pain.
== END 2022-05-26 02:21 | disposition home or self-care (01) ==
LOC: ED 00:58
DX: S46.912A Strain of unspecified muscle, fascia and tendon at shoulder and upper arm level, left arm, initial encounter (principal); S16.1XXA Strain of muscle, fascia and tendon at neck level, initial encounter; X58.XXXA Exposure to other specified factors, initial encounter; M43.6 Torticollis
CPT/HCPCS: 96372; 99281; 99283

== ENCOUNTER 2022-09-08 15:09 | Outpatient (CLI) | payer MEDICAID ==
[2022-09-08 18:32] LABS: BACTERIAL VAGINOSIS DNA NEGATIVE (NEGATIVE); CANDIDA GLABRATA DNA NEGATIVE (NEGATIVE); CANDIDA GROUP DNA NEGATIVE (NEGATIVE); CANDIDA KRUSEI DNA NEGATIVE (NEGATIVE); TRICHOMONAS VAGINALIS DNA NEGATIVE (NEGATIVE)
[2022-09-08 21:39] LABS: CHLAMYDIA TRACHOMATIS DNA NEGATIVE (NEGATIVE); NEISSERIA GONORRHOEAE DNA NEGATIVE (NEGATIVE)
== END 2022-09-08 15:10 | disposition home or self-care (01) ==
LOC: LAB.WC 15:09
PROVIDERS: ATTEND Nurse Practitioner
DX: N89.8 Other specified noninflammatory disorders of vagina (principal); Z11.3 Encounter for screening for infections with a predominantly sexual mode of transmission
CPT/HCPCS: 81514; 87491; 87591; 87661

== ENCOUNTER 2022-12-08 10:16 | Outpatient (CLI) | payer MEDICAID ==
[2022-12-08 10:53] LABS: BASOPHILS % (AUTO) 0.3 %; EOSINOPHILS # (AUTO) 0.1 10^3/uL (0.0-0.7); EOSINOPHILS % (AUTO) 1.2 %; HCT - HEMATOCRIT 41.3 % (37.0-47.0); HGB - HEMOGLOBIN 13.5 g/dL (12.0-16.0); LYMPHOCYTES # (AUTO) 1.6 10^3/uL (1.5-3.5); LYMPHOCYTES % (AUTO) 28.1 %; MEAN CORPUSCULAR HEMOGLOBIN 29.2 pg (27.0-31.0); MEAN CORPUSCULAR HGB CONC 32.7 g/dL (32.0-36.0); MEAN CORPUSCULAR VOLUME 89.2 fL (81.0-99.0); MEAN PLATELET VOLUME 8.4 fL (7.9-10.8); MONOCYTES # (AUTO) 0.4 10^3/uL (0.0-1.0); MONOCYTES % (AUTO) 7.2 %; NEUTROPHILS # (AUTO) 3.6 10^3/uL (1.5-6.6); NEUTROPHILS % (AUTO) 62.9 %; PLT - PLATELET COUNT 343 10^3/uL (130-450); RED BLOOD COUNT 4.63 10^6/uL (4.20-5.40); RED CELL DISTRIBUTION WIDTH 11.5 % (12.0-15.0); WHITE BLOOD COUNT 5.7 x10^3/uL (4.8-10.8)
[2022-12-08 11:24] LABS: ALBUMIN/GLOBULIN RATIO 1.2 (1.0-2.2); ALKALINE PHOSPHATASE 57 IU/L (42-121); ALT ALANINE AMINOTRANSFERASE 21 IU/L (10-60); AST ASPARTATE AMINOTRANSFERASE 17 IU/L (10-42); BILIRUBIN,TOTAL 0.2 mg/dL (0.2-1.0); BUN - BLOOD UREA NITROGEN 13 mg/dL (6-20); CALCIUM 9.1 mg/dL (8.5-10.3); CARBON DIOXIDE - CO2 27 mmol/L (21-32); CHLORIDE 102 mmol/L (101-111); CHOL/HDL RATIO 4.2 (<4.4); CHOLESTEROL 190 mg/dL; CREATININE 0.6 mg/dL (0.4-1.0); GFR - MDRD 124 (>89); GLUCOSE 103 mg/dL (70-100); HDL CHOLESTEROL 45 mg/dL; LDL CHOLESTEROL,CALCULATED 136 mg/dL; POTASSIUM 4.3 mmol/L (3.5-5.0); SODIUM 137 mmol/L (135-145); TOTAL PROTEIN 7.3 g/dL (6.7-8.2); TRIGLYCERIDES 46 mg/dL; VLDL CHOLESTEROL 9 mg/dL
--- NOTE | 2022-12-08 11:31 | Ultrasound Report ---
PROCEDURE: Abdomen Limited INDICATIONS: GERD TECHNIQUE: Real-time focused scanning was performed of the abdomen, with image documentation. COMPARISONS: None. FINDINGS: Liver: Liver is normal in size and homogeneous in echotexture. Gallbladder: Gallbladder wall measures 1.6 mm in diameter. No stones, sludge, pericholecystic fluid o r sonographic Cramer sign. Biliary ducts: Intrahepatic bile ducts are non-dilated. Extrahepatic bile duct caliber measures 2.5 mm. Normal is 6-7 mm or less in diameter, or 10 mm or less post-cholecystectomy. Pancreas: Visualized portions of the pancreas are sonographically normal. Right kidney: Right kidney measures 10.4 cm long. No hydronephrosis or nephrolithiasis. No solid mas ses. No complex renal cystic lesions which require follow-up. Aorta: Visualized aorta is normal in caliber at less than 3 cm. IVC: Intrahepatic inferior vena cava is patent. Miscellaneous: No free abdominal fluid. IMPRESSION: 1. No cholelithiasis or findings to suggest choledocholithiasis or acute cholecystitis. Reviewed by: Eleni Díaz MD on 12/08/2022 11:29 AM PDT Approved by: Eleni Díaz MD on 12/08/2022 11:29 AM PDT Station ID: [id number]
[2022-12-08 11:35] LABS: THYROID STIMULATING HORMONE 1.77 uIU/mL (0.34-5.60)
[2022-12-08 11:42] LABS: FERRITIN 17.2 ng/mL (11.0-306.8)
== END 2022-12-08 10:17 | disposition home or self-care (01) ==
LOC: DI 10:16
PROVIDERS: ATTEND Physician Assistant Medical
DX: Z00.00 Encounter for general adult medical examination without abnormal findings (principal); K21.9 Gastro-esophageal reflux disease without esophagitis; F41.9 Anxiety disorder, unspecified; N93.9 Abnormal uterine and vaginal bleeding, unspecified
CPT/HCPCS: 36415; 80053; 80061; 82607; 82728; 83721; 84443; 85025

== ENCOUNTER 2023-03-24 12:10 | Outpatient (CLI) | payer MEDICAID ==
--- NOTE | 2023-03-25 16:46 | XRAY Report ---
PROCEDURE: Ankle 3 View RT INDICATIONS: PRIORS: 03/16/23 SPRAIN OF UNSPECIFIED LIGAMENT OF RIGHT TECHNIQUE: 3 views of the ankle were acquired. COMPARISON: None. FINDINGS: Bones: No fractures or dislocations. Ankle mortise is normally aligned. No suspicious bony lesions . Soft tissues: No tibiotalar joint effusion. Achilles tendon appears normal. IMPRESSION: No acute bony abnormality. Ankle mortise is congruent. Reviewed by: Neil Almaraz MD on 03/25/2023 4:44 PM PDT Approved by: Neil Almaraz MD on 03/25/2023 4:44 PM PDT Station ID: [id number]
--- NOTE | 2023-03-25 16:47 | XRAY Report ---
PROCEDURE: Foot 2 View RT INDICATIONS: SPRAIN OF UNSPECIFIED LIGAMENT OF RIGHT TECHNIQUE: Right views of the foot were acquired. COMPARISON: 03/16/2023. FINDINGS: Bones: No fractures or dislocations. No suspicious bony lesions. Soft tissues: No suspicious soft tissue calcifications or masses. IMPRESSION: No right foot fracture or dislocation. No signs of healing fracture. Reviewed by: Neil Almaraz MD on 03/25/2023 4:46 PM PDT Approved by: Neil Almaraz MD on 03/25/2023 4:46 PM PDT Station ID: [id number]
== END 2023-03-24 12:11 | disposition home or self-care (01) ==
LOC: DI 12:10
PROVIDERS: ATTEND Nurse Practitioner Family
DX: S93.401A Sprain of unspecified ligament of right ankle, initial encounter (principal)

== ENCOUNTER 2023-10-20 13:38 | Outpatient (CLI) | payer BC ==
[2023-10-20 14:12] LABS: BASOPHILS % (AUTO) 0.3 %; EOSINOPHILS % (AUTO) 0.6 %; HCT - HEMATOCRIT 42.9 % (37.0-47.0); HGB - HEMOGLOBIN 14.2 g/dL (12.0-16.0); LYMPHOCYTES # (AUTO) 1.8 10^3/uL (1.5-3.5); LYMPHOCYTES % (AUTO) 26.1 %; MEAN CORPUSCULAR HEMOGLOBIN 28.9 pg (27.0-31.0); MEAN CORPUSCULAR HGB CONC 33.1 g/dL (32.0-36.0); MEAN CORPUSCULAR VOLUME 87.4 fL (81.0-99.0); MEAN PLATELET VOLUME 8.6 fL (7.9-10.8); MONOCYTES # (AUTO) 0.5 10^3/uL (0.0-1.0); MONOCYTES % (AUTO) 6.5 %; NEUTROPHILS # (AUTO) 4.6 10^3/uL (1.5-6.6); NEUTROPHILS % (AUTO) 66.1 %; PLT - PLATELET COUNT 392 10^3/uL (130-450); RED BLOOD COUNT 4.91 10^6/uL (4.20-5.40); RED CELL DISTRIBUTION WIDTH 11.9 % (12.0-15.0); WHITE BLOOD COUNT 6.9 x10^3/uL (4.8-10.8)
[2023-10-20 14:43] LABS: THYROID STIMULATING HORMONE 1.62 uIU/mL (0.34-5.60)
[2023-10-20 21:08] LABS: ESTIMATED AVERAGE GLUCOSE 100 mg/dL (70-100); HEMOGLOBIN A1c% 5.1 % (4.27-6.07)
== END 2023-10-20 13:39 | disposition home or self-care (01) ==
LOC: LAB 13:38
PROVIDERS: ATTEND Nurse Practitioner
DX: N93.9 Abnormal uterine and vaginal bleeding, unspecified (principal); Z32.00 Encounter for pregnancy test, result unknown
CPT/HCPCS: 36415; 83036; 84439; 84443; 84702; 85025

== ENCOUNTER 2024-04-17 12:48 | Outpatient (CLI) | payer BC ==
[2024-04-17 13:18] LABS: CALCIUM 9.1 mg/dL (8.5-10.3); CREATININE 0.7 mg/dL (0.6-1.3); POTASSIUM 3.8 mmol/L (3.5-4.5)
[2024-04-17 13:41] LABS: FERRITIN 24.1 ng/mL (11.0-306.8)
== END 2024-04-17 12:49 | disposition home or self-care (01) ==
LOC: LAB 12:48
PROVIDERS: ATTEND Physician Assistant Medical
DX: R53.83 Other fatigue (principal)
CPT/HCPCS: 36415; 80048; 82306; 82607; 82728; 83540; 84466